=== PATIENT | male | born 1985 | race Caucasian/White ===

== ENCOUNTER 2021-05-02 01:24 | Emergency (ER) | payer MEDICARE ==
[2021-05-02 02:19] LABS: HEMOGLOBIN 15.3 gm/dl (14.0-17.5); RED BLOOD COUNT 4.66 M/UL (4.20-5.50); WHITE BLOOD COUNT 10.4 K/UL (4.5-11.0)
[2021-05-02 02:33] LABS: BUN/CREATININE RATIO 14 (0-10)
[2021-05-02] MEDS ORDERED: PERCOCET 5-3251 EACH PO (06:41)
== END 2021-05-02 10:42 | disposition home or self-care (01) ==
LOC: ER1 01:24
PROVIDERS: Emergency Medicine
DX: S02.32XA Fracture of orbital floor, left side, initial encounter for closed fracture (principal); S43.005A Unspecified dislocation of left shoulder joint, initial encounter; W01.0XXA Fall on same level from slipping, tripping and stumbling without subsequent striking against object, initial encounter; Y92.89 Other specified places as the place of occurrence of the external cause; Z23 Encounter for immunization
CPT/HCPCS: 23650; 70450; 70486; 71045; 72125; 72128; 72131; 73030; 73060; 80053; 82962; 85025; 90471; 90715; 93005; 99151; 99153; 99283; G0480; J2250